=== PATIENT | male | born 1975 | race Caucasian/White ===

== ENCOUNTER 2017-03-29 07:02 | Inpatient (IN) | payer OTHER ==
[2017-03-17 09:50] LABS: BASOPHILS 0.8 %; BASOPHILS ABSOLUTE 0.05 10/3/uL (0.0-0.16); EOSINOPHILS 2.4 %; EOSINOPHILS ABSOLUTE 0.15 10/3/uL (0.0-0.53); HEMOGLOBIN 14.6 g/dL (13.6-17.8); LYMPHOCYTES 35.4 %; LYMPHOCYTES ABSOLUTE 2.21 10/3/uL (0.67-4.30); MANUAL DIFF NO %; MEAN CORPUS HGB CONC 34.8 g/dL (32.0-36.0); MEAN CORPUSCULAR HEMOGLOB 29.4 pg (26.0-34.0); MEAN CORPUSCULAR VOLUME 84.7 fL (80-100); MEAN PLATELET VOLUME 10.8 fL (9.2-13.0); MONOCYTES 8.3 %; MONOCYTES ABSOLUTE 0.52 10/3/uL (0.21-1.20); NEUTROPHILS 53.1 %; NEUTROPHILS ABSOLUTE 3.31 10/3/uL (2.02-8.40); PLATELET COUNT 208 10/3/uL (150-400); RED CELL COUNT 4.96 10/6/uL (4.7-6.1); WHITE BLOOD CELLS 6.2 10/3/uL (4.5-10.5)
[2017-03-17 09:55] LABS: INTERNATIONAL NORMAL RATI 1.1 UNITS (-); PROTIME (NOT ORD) 14.2 SEC (12.0-14.5)
[2017-03-17 10:14] LABS: % IRON SAT 33 % (20-50); A/G RATIO 1.2 (0.7-1.9); ALBUMIN 4.4 G/DL (3.5-5.0); BUN (BLOOD UREA NITROGEN) 15 MG/DL (6-23); CALCIUM, SERUM 9.4 MG/DL (8.5-10.4); CHLORIDE, SERUM 106 MMOL/L (96-112); CO2 (CARBON DIOXIDE) 28 MMOL/L (24-34); CREATININE 0.94 MG/DL (0.70-1.30); GFR AFRICAN AMERICAN 115 ML/MIN (>=60); GFR NON AFRICAN AMERICAN 100 ML/MIN (>=60); GLOBULIN 3.7 G/DL (2.5-4.1); GLUCOSE, SERUM 98 MG/DL (60-99); IRON BINDING CAPACITY 297 MCG/DL (250-450); IRON, SERUM 97 MCG/DL (35-150); POTASSIUM, SERUM 4.6 MMOL/L (3.5-5.3); SGOT(AST) 23 U/L (5-40); SGPT(ALT) 47 U/L (5-65); SODIUM, SERUM 140 MMOL/L (135-148); TOTAL PROTEIN 8.1 G/DL (6.0-8.5)
[2017-03-17 10:15] LABS: ALKALINE PHOSPHATASE 108 U/L (45-117); ASCORBIC ACID (UR NOT ORDER) NEG (NEG); BILIRUBIN, URINE NEGATIVE (NEG); KETONE, URINE NEGATIVE (NEG); LEUKOCYTE ESTERASE(NOT OR NEG (NEG); TOTAL BILIRUBIN 0.5 MG/DL (0-1.2); WBC (NOT ORDERED) (RFLEX) 1 (0-5)
--- NOTE | ~2017-03-29 | PUL ---
[address] [address] NAME: JAUN GIANG : 73 STATUS : ADM IN PAT#: [id number] AGE: 41 ADM/REG DATE : 03/29/17 MR#: [id number] REPORT SERV DATE: 04/03/17 DICTATED BY: SANG SHERMAN DATE: 04/02/17 REPORT STATUS : Draft TRANSCRIBED BY: MODL DATE: 04/02/17 PULMONARY FUNCTION TEST Overnight oximetry was performed on 2 L nasal cannula. Total valid sampling time was 7 hours 19 minutes and 18 seconds. Saturations were less than 88 for 28 seconds. INTERPRETATION: Normal oximetry report while on 2 L nasal cannula. FERNANDO/DEMETRIL Sang Sherman M.D. / [id number] CC: Mally Scott NP
--- NOTE | ~2017-03-29 | PUL ---
[address] [place]. [address] NAME: JAUN GIANG : 73 STATUS : ADM IN PAT#: [id number] AGE: 41 ADM/REG DATE : 03/29/17 MR#: [id number] REPORT SERV DATE: 04/03/17 DICTATED BY: SANG SHERMAN DATE: 04/02/17 REPORT STATUS : Draft TRANSCRIBED BY: MODL DATE: 04/02/17 PULMONARY FUNCTION TEST RESULTS: 1. FEV1 of 1.54 L or 33% predicted. 2. Forced vital capacity of 1.88 L or 32% predicted. 3. FEV1/FVC of 82%. INTERPRETATION: 1. Normal airflow. 2. Decreased forced vital capacity may indicate neuromuscular weakness, poor effort, or restriction. 3. 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 FERNANDO/LION Sang Sherman M.D. / [id number] CC: Mally Scott
--- NOTE | ~2017-03-29 | PUL ---
[address] [place]. [address] NAME: JAUN GIANG : 73 STATUS : DIS IN PAT#: [id number] AGE: 41 ADM/REG DATE : 03/29/17 MR#: [id number] REPORT SERV DATE: 04/10/17 DICTATED BY: KARL HOLCOMB DATE: 04/10/17 REPORT STATUS : Draft TRANSCRIBED BY: MODL DATE: 04/10/17 PULMONARY FUNCTION TEST PROCEDURE PERFORMED: Overnight oximetry. Study performed on room air with 6 hours of recorded time. The patient had 24 minutes of oxygen saturation less than 88% with an elevated saturation event index. IMPRESSION: Abnormal study with nocturnal hypoxemia. Consider formal sleep study if clinically indicated. MARTELL/LION Karl Holcomb M.D. / [id number] CC: Mlaly Scott
--- NOTE | ~2017-03-29 | DS ---
Discharge Summary [facility] [address] [place]. [address] NAME: JAUN GIANG : 73 STATUS : DIS IN PAT#: [id number] AGE: 41 ADM/REG DATE : 03/29/17 MR#: [id number] REPORT SERV DATE: 04/12/17 DICTATED BY: JEANNIE CRAIN DATE: 04/12/17 REPORT STATUS : Draft TRANSCRIBED BY: LION DATE: 04/12/17 Data Collection from hospitalization DISCHARGE DIAGNOSES: 1. Mitral regurgitation, status post mitral valve repair. 2. Hypertension. 3. Hypercholesterolemia. 4. Tobacco use. CONSULTATIONS: 1. Sang Sherman M.D. 2. Cameron Pearce M.D. PROCEDURES PERFORMED: 1. Minimally invasive mitral valve repair using triangular valvuloplasty, mitral valve annuloplasty using a 30 mm Physio II annuloplasty ring system, right femoral arteriotomy repair, right groin cutdown for cardiopulmonary bypass via right femoral vein and artery, transesophageal echocardiography on 03/29/2017. 2. CT scan of the chest without contrast on 04/01/2017. MEDICATIONS: Norvasc 10 mg every morning, vitamin C 1000 mg twice a day, aspirin 81 mg daily, Lipitor 40 mg at bedtime, Lasix 40 mg daily, hydrochlorothiazide 25 mg every morning, Cozaar 100 mg every morning, Glucophage 500 mg daily, Roxicodone 15 mg every four hours as needed, Klor-Con 20 mEq daily, Lyrica 50 mg three times a day, and Coumadin as instructed. CONDITION AT DISCHARGE: Stable. DISPOSITION: The patient was discharged home on a regular diet with activities as instructed. He would follow up with Shabbir Smith on 06/02/[address] Cameron Pearce on 05/19/2017. He would follow up with Dr. Da Ni two to six weeks following discharge. He would follow up with Dr. Tank Mcgee two to four weeks following discharge. He is to follow up at the [facility] on 04/05/2017 and a cardiac cath on 04/21/2017. HOSPITAL COURSE: This is a 41-year-old man who has diabetes and a history of right ACL repair with complication of MRSA infection. He also has a history of dilated aortic root. During one of his evaluations following the ACL repair infection, he was found to have a heart murmur. He underwent an echocardiogram, which demonstrated mitral valve insufficiency and subsequent transesophageal echocardiogram confirmed the presence of a significant mitral valve insufficiency along with a dilated ascending aorta and aortic root. His aortic valve had normal function and was a tricuspid valve. The mitral valve had a flail P1 or P2 cusp with severe mitral valve insufficiency and an eccentric jet. The patient had undergone a cardiac catheterization which did not demonstrate any significant coronary artery disease. He has a strongly left dominant system. Treatment options were discussed and it was elected to proceed with surgical intervention. He was admitted to the hospital at this time for further evaluation and treatment. Upon admission, he was taken to the operating room where he underwent the above-mentioned Discharge Summary [address] [address] NAME: JAUN GIANG : 73 STATUS : DIS IN PAT#: [id number] AGE: 41 ADM/REG DATE : 03/29/17 MR#: [id number] REPORT SERV DATE: 04/12/17 DICTATED BY: JEANNIE CRAIN DATE: 04/12/17 REPORT STATUS : Draft TRANSCRIBED BY: LION DATE: 04/12/17 procedure. He tolerated this well, and there were no complications. On postop day #1, he was awake and alert. He did complain of some pain with inspiratory effort in the right chest. Lung sounds were actually better than chest x-ray would suggest. Diuresis was going to began. White count was 12.1. SVC cannulation was requested. Resistance was encountered with attempted insertion of the cannula with absence of blood drainage. The procedure was aborted. The patient was seen by Dr. Cameron Pearce. The patient had been extubated. He still complained of some right-sided chest pain at the chest tube site. Toradol was given for musculoskeletal pain. Amiodarone and metoprolol would be given as schedule. He was transferred to the floor. On 03/31/2017, white count was 15.9. He still complained of some burning pain in the right side of his chest. Medications had been adjusted. Warfarin was started. Metoprolol was increased. INR level was 1.2. On 04/01/2017, he said he felt great. BiPAP had been used overnight. He had no chest pain or shortness of breath. He was in a normal sinus rhythm. He does have a moderate right- sided pleural effusion. Chest x-ray showed elevated right hemidiaphragm versus effusion or right lower lobe collapse. He was seen in consultation by Dr. Sang Sherman. White blood cell count was 15. Chest CT without contrast had revealed minimal pneumomediastinum. No pneumothorax was present. There was subcutaneous air present in the right chest wall. There was persistent elevation of the right diaphragm with minimal right pleural fluid. There was compressive atelectasis in the right middle lobe and right lower lobe. There was stable aneurysmal dilatation of the aortic root that measured 4.5 cm. He does have a history of chewing tobacco use. His postprocedure course had been complicated by shortness of breath, dyspnea, and mild orthopnea. He had undergone CPAP therapy overnight and demonstrated significant improvement. Subsequent chest x-ray demonstrated right basilar consolidation as well as elevated right hemidiaphragm, and CT scan had demonstrated clear evidence of elevated right hemidiaphragm and compressive atelectasis with no evidence of pneumonic infiltrate. At this point, he recommended bedside pulmonary function test to assess baseline lung function. The patient was to use incentive spirometry and flutter valve. Overnight oximetry study was going to be requested on 2 liters nasal cannula. ABG will be checked the following morning to assess whether he was a candidate for noninvasive positive pressure ventilation. In lieu of a sleep study, sniff test was requested. He felt the patient should see Dr. Mcgee as an outpatient for suspected obstructive sleep apnea, now with a possible restrictive component due to elevated right hemidiaphragm. The patient was aware that the right hemidiaphragm may recover in the intervening six months to a year. If it did not, he was a candidate for possible diaphragmatic plication. The following day, the patient complained that he had not slept at all. His incisions looked okay. He had a decreased heart rate overnight. The patient felt weak. Metoprolol and amiodarone were held. Telemetry revealed sinus rhythm with pauses noted. There was QRS morphology similar to sinus suggestive of junctional escape. I was felt AV block was likely related to medications. Norvasc was resumed. Cozaar was going to be resumed at a reduced dose. Discharge planning was performed. On 04/03/2017, INR level was 1.6. He was wanting to go home. He said he slept well. The patient said he was interested in BiPAP for obstructive sleep apnea and is willing to pay for it. We were hopeful to get this arranged as an outpatient. Discharge instructions were given. Due to his improved and stable condition, he was discharged home with the above-stated instructions. Information collected by: Rain Hodge Discharge Summary [address] [place]. [address] NAME: JAUN GIANG : 73 STATUS : DIS IN PAT#: [id number] AGE: 41 ADM/REG DATE : 03/29/17 MR#: [id number] REPORT SERV DATE: 04/12/17 DICTATED BY: JEANNIE CRAIN DATE: 04/12/17 REPORT STATUS : Draft TRANSCRIBED BY: LION DATE: 04/12/17 I submit the above information as my discharge summary. BRENT/LION Jeannie Crain M.D. / [id number] CC: Mally Scott LISA M William Warren, M.D.
--- NOTE | ~2017-03-29 | CN ---
Consultation Report [facility] [address] [place]. [address] NAME: JAUN MUNOZ : 73 STATUS : ADM IN PAT#: [id number] AGE: 41 ADM/REG DATE : 03/29/17 MR#: [id number] REPORT SERV DATE: 04/01/17 DICTATED BY: SANG ESCOBAR DATE: 04/01/17 REPORT STATUS : Draft TRANSCRIBED BY: MODBabar DATE: 04/01/17 CONSULTATION REPORT DATE OF CONSULTATION: Dear Dr. Crain and Shabbir Smith: Thank you for requesting my opinion regarding evaluation and management of Mr. Jaun Munoz's shortness of breath, elevated right hemidiaphragm, and possible obstructive sleep apnea. Mr. Munoz is an extremely pleasant 41-year-old gentleman with a significant past medical history of hypertension, aneurysm of the aortic root, and mitral valvular regurgitation who presented for an outpatient elective minimally invasive MVR. The patient underwent a right ACL repair in October of 2016 and developed a torn quadriceps muscle which became infected. He had been on antibiotics and then presented to Dr. Pulliam for further evaluation. Dr. Pulliam detected a new heart murmur that was not present on previous examinations. The patient then underwent an echocardiogram that demonstrated mitral valve insufficiency and subsequently underwent MARGO that confirmed a dilated aortic root up to 4.5 cm. He had a tricuspid normal-shaped aortic valve with normal function and mitral valve had a flailed P1 or P2 segment with significant and severe mitral valve insufficiency, which was eccentric. There was minimal flow reversal in one of the pulmonary veins and his ventricular dimensions were normal and ventricular function was normal. He was referred to Dr. Crain on 02/24/2017 who recommended a right thoracoscopic approach with minimally invasive MVR placement. The patient's postoperative course has been complicated by worsening shortness of breath, dyspnea on exertion, and right-sided expected postoperative discomfort. The patient states that his shortness of breath is moderate in nature, well localized to the chest, worse when lying flat. Subsequent chest x-ray on 04/01/2017 demonstrated a persistent right basilar consolidation with elevation of the right hemidiaphragm. A CT scan of the chest performed on 04/01/2017 confirmed the mitral valve replacement, minimal pneumomediastinum, no pneumothorax and subcutaneous air present throughout the right chest wall, persistent elevation of the right hemidiaphragm with minimal right-sided pleural effusion and compressive atelectasis of the right middle lobe and right lower lobe. Stable aneurysm and dilation of the aortic root that measures 4.5 cm. The patient was placed on CPAP last night by the respiratory therapist, and the patient reported dramatic improvement in his shortness of breath and immediately requested a similar machine for his home. He stated that it was the best sleep he has ever had. He reveals that he has had a long history of poor non-restorative sleep, excessive daytime fatigue, and witnessed apneic episodes. REVIEW OF SYSTEMS: A detailed 14-point review of systems was completed. Pertinent positives and negatives are listed above. PAST MEDICAL HISTORY: 1. Dilated aortic root. Consultation Report [id number] [facility] [place]. [address] NAME: JAUN MUNOZ : 73 STATUS : ADM IN PAT#: [id number] AGE: 41 ADM/REG DATE : 03/29/17 MR#: [id number] REPORT SERV DATE: 04/01/17 DICTATED BY: SANG ESCOBAR DATE: 04/01/17 REPORT STATUS : Draft TRANSCRIBED BY: LION DATE: 04/01/17 2. Right ACL repair complicated by Propionibacterium acnes septic arthritis. 3. Hypertension. PAST SURGICAL HISTORY: 1. Cardiac catheterization that demonstrated an EF of 60%, left dominant, no CAD, no gradient between the left ventricle and aorta on 04/17/2012. Repeat cath on 02/16/2017 demonstrated EF of 65%, left dominant severe MR, and a dilated left atrium, normal coronary arteries, large D1 that parallels to LAD and supplies more of the LAD territories in the remaining LAD. PA pressures of 44/18 with a mean pulmonary capillary wedge pressure of 21 and LVEDP of 20. 2. Minimally invasive mitral valve repair on 03/29/2017. SOCIAL HISTORY: The patient chews tobacco, but he is not a smoker. He has a limited alcohol use, typically beer or liquor, three glasses consumed weekly. No history of illicit drug abuse. FAMILY HISTORY: Paternal grandfather with aneurysm. Father - hypertension. ALLERGIES: NO KNOWN DRUG ALLERGIES. HOME MEDICATIONS: Reviewed and located in the paper chart. PHYSICAL EXAMINATION: VITAL SIGNS: Afebrile, T current of 99.2; pulse of 67; respiratory rate of 16; room air 94%; and blood pressure 142/77. GENERAL: In no acute distress, able to communicate in full paragraphs at a time. HEENT: Normocephalic and atraumatic. Pupils are equal, round, and reactive to light and accommodation. Posterior oropharynx is clear, but crowded. NECK: Thick neck. No JVD. CARDIOVASCULAR: Regular rate and rhythm. S1 and S2 present. LUNGS: Coarse bilateral breath sounds bilaterally, worse on the right with slight crepitus from subcutaneous emphysema. Diminished breath sounds at the right base. ABDOMEN: Nontender, nondistended, and soft. Positive bowel sounds. EXTREMITIES: No clubbing, cyanosis, or edema. SKIN: No new rashes, lesions, or ulcers. PSYCHIATRIC: Alert and oriented x3. Appropriate mood and affect. Appropriate insight and judgment. NEUROLOGIC: 5/5 strength in upper and lower extremities. Cranial nerves II through XII are intact. Gait not tested. DTRs not performed. LABORATORY DATA: White count of 15, hemoglobin of 11, and platelet count of 113. INR of 1.3. Chemistries demonstrate a creatinine of 0.73. Last ABG performed on 03/29/2017 demonstrates a pH of 7.39, PaCO2 of 37, PaO2 of 83 on SIMV with tidal volumes of 850, a rate of 10, and a PEEP of 5. Consultation Report [address] [place]. [address] NAME: JAUN MUNOZ : 73 STATUS : ADM IN [facility]#: [id number] AGE: 41 ADM/REG DATE : 03/29/17 MR#: [id number] REPORT SERV DATE: 04/01/17 DICTATED BY: SANG ESCOBAR DATE: 04/01/17 REPORT STATUS : Draft TRANSCRIBED BY: LION DATE: 04/01/[address] without contrast performed on 04/01/2017 was personally reviewed by me and I agree with the above interpretation. The patient is status post mitral valve replacement. 2. Minimal pneumomediastinum. No pneumothorax present. Subcutaneous air is present in the right chest wall, persistent elevation of the right hemidiaphragm with minimal right pleural fluid. There is compressive atelectasis in the right middle lobe and right lower lobe. 3. Stable aneurysmal dilation of the aortic root that measures 4.5 cm. ASSESSMENT AND PLAN: Mr. Jaun Munoz is an extremely pleasant 41-year-old gentleman with a significant past medical history of chewing tobacco, abuse, hypertension, right anterior cruciate ligament repair complicated by right knee septic arthritis, and mitral valve replacement who presented to [facility] for an elective minimally invasive mitral valve repair. His postprocedural course has been complicated by shortness of breath, dyspnea, and mild orthopnea. He underwent CPAP therapy overnight and it demonstrated significant improvement. Subsequent chest x-ray demonstrated right basilar consolidation as well as elevated right hemidiaphragm and CT scan demonstrated clear evidence of elevated right hemidiaphragm and compressive atelectasis with no evidence of a pneumonic infiltrate. At this point, Mr. Jaun Munoz's shortness of breath is likely multifactorial including the followin. Preexisting history of nonrestorative sleep, daytime fatigue, and witnessed apneic episodes consistent with likely obstructive sleep apnea. 2. Elevated right hemidiaphragm, suspicious for either paralysis or plegia. 3. Postoperative atelectasis in addition to compressive atelectasis secondary to the elevated right hemidiaphragm. At this point, I recommend the following to optimize his pulmonary status and better elucidate the underlying causes of his shortness of breath including the followin. Bedside pulmonary function tests to assess baseline lung function. 2. ICS QVAR. 3. Flutter valve t.i.d. 4. Overnight oximetry on 2 liters nasal cannula. Check ABG in the a.m. to assess whether he is a candidate for noninvasive positive pressure ventilation in lieu of a sleep study. 5. Sniff test. 6. Outpatient consultation with Dr. Mcgee for suspected obstructive sleep apnea with now a possible restrictive component due to elevated right hemidiaphragm. 7. The patient is aware that the right hemidiaphragm may recover in the intervening six months to year. If it does not, he is a candidate for possible diaphragmatic plication, pending Dr. Crain's evaluation. 8. Follow up in our Pulmonary Clinic with Dr. Da Ni. He has been apprised of the current hospital course. Consultation Report [address] [place] [address] NAME: JAUN MUNOZ : 73 STATUS : ADM IN PAT#: [id number] AGE: 41 ADM/REG DATE : 03/29/17 MR#: [id number] REPORT SERV DATE: 04/01/17 DICTATED BY: SANG ESCOBAR DATE: 04/01/17 REPORT STATUS : Draft TRANSCRIBED BY: LION DATE: 04/01/17 Thank you for allowing me to participate in Mr. Munoz's care. FERNANDO/LION Sang Escobar M.D. / [id number] CC: Mally Scott LISA M
--- NOTE | ~2017-03-29 | OP ---
Record Of Operation [facility] [address] [place]. [address] NAME: JAUN GIANG : 73 STATUS : ADM IN PAT#: [id number] AGE: 41 ADM/REG DATE : 03/29/17 MR#: [id number] REPORT SERV DATE: 04/02/17 DICTATED BY: JEANNIE CRAIN DATE: 04/02/17 REPORT STATUS : Draft TRANSCRIBED BY: MODL DATE: 04/02/17 DATE OF PROCEDURE: 03/29/2017 PREOPERATIVE DIAGNOSES: 1. Mitral valve insufficiency. 2. Type 2 dqt-nsrjbej-houijpukt diabetes mellitus. 3. Hypertension. 4. Enlargement of aortic root. 5. Obesity. POSTOPERATIVE DIAGNOSES: 1. Mitral valve insufficiency. 2. Type 2 enq-uhkmynr-zveojcqkh diabetes mellitus. 3. Hypertension. 4. Enlargement of aortic root. 5. Obesity. PROCEDURE PERFORMED: 1. Minimally invasive mitral valve repair using triangular valvuloplasty. 2. Mitral valve annuloplasty using a 30 mm Physio II annuloplasty ring system. 3. Right femoral arteriotomy repair. 4. Right groin cutdown for cardiopulmonary bypass via right femoral vein and artery. 5. Transesophageal echocardiography. SURGEONS: Jeannie Crain M.D. ASSISTANTS: Roman Mendiola and Hubert Calvo. ANESTHESIA: General with Dr. Sandoval and Dr. Oviedo. PROP CUTTER: Cameron Pearce M.D. INDICATIONS: This is a 41-year-old gentleman, with diabetes, who has a history of right ACL repair, with complication of MRSA infection. He also has a history of dilated aortic root. During one of his evaluations following his ACL repair infection, he was found to have a heart murmur. He underwent an echocardiogram that demonstrated mitral valve insufficiency and subsequent MARGO confirmed the presence of a significant mitral valve insufficiency along with a dilated ascending aorta and aortic root. His aortic valve had normal function and was a tricuspid valve. The mitral valve had a flail P1 or P2 cusp with severe mitral valve insufficiency in an eccentric jet. The patient underwent a cardiac catheterization, it did not demonstrate any significant coronary artery disease. A strongly left dominant system. We were asked to see the patient for possible mitral valve repair or replacement. We discussed this operation with the patient and his significant other, and after lengthy discussion of the operation, its indications, risks, they wished to proceed. Right thoracotomy minimally invasive approach was discussed with the family and they also preferred this. As far as his dilated ascending aorta and aortic root, it was felt that one Record Of Operation [facility] [address] [place]. [address] NAME: JAUN GIANG : 73 STATUS : ADM IN PAT#: [id number] AGE: 41 ADM/REG DATE : 03/29/17 MR#: [id number] REPORT SERV DATE: 04/02/17 DICTATED BY: JEANNIE CRAIN DATE: 04/02/17 REPORT STATUS : Draft TRANSCRIBED BY: LION DATE: 04/02/[address] scan would be indicated. FINDINGS AT OPERATION: 1. Cross-clamp 119 minutes. Total pump time 177 minutes. Custodiol was used as a cardioplegic solution. 2. The P2 cusp of the posterior leaflet was flail with ruptured chords. There were only two or three ruptured cords at the tip of one of the cusp of the leaflet. As it was somewhat redundant tissue at this time, we were able to do a triangular resection and primarily repaired this as a valvuloplasty. 3. A 30 mm annuloplasty ring system was implanted (Physio II) with good results. 4. MARGO demonstrated good ventricular function with trace mitral valve insufficiency at the end of the procedure. 5. The left atrial appendage opening could not be visualized through the atriotomy that was made. Because of the patient's size, exposure was challenging, and I did not feel comfortable trying to close the left atrial appendage. In addition, the patient had extremely large circumflex system and we were concerned about injuring this artery. 6. During the placement of the lines by Anesthesia and a right IJ perforation was made with a 19-Uzbek cannula. The cannula was withdrawn and pressure held over the neck for several minutes. We delayed, started the operation after about 45 minutes waiting for good hemostasis. While doing the procedure and through the right thoracotomy there was about 100 mL of blood clot and blood in the right chest. The perforation site into the pleural cavity was visualized and was not actively bleeding even at the beginning of the procedure or following bypass at the end. PATHOLOGIC SPECIMENS: None. DESCRIPTION OF PROCEDURE: The patient was brought to the operating suite, general anesthesia was induced, and airway was secured with a dual lumen endotracheal tube. Lines were secured by Anesthesia. In addition, a right IJ stick was performed after confirmation with ultrasound and a guidewire was placed in the SVC. Then, using a modified Seldinger technique this tract was dilated and eventually a 19-Uzbek arterial cannula was placed for SVC drainage. When the introducer stylet was removed and the guidewire was removed, there was no back return through the cannula. I felt that this most likely represented a perforation of the vessel. The catheter was withdrawn and pressure held over the wound and we waited a period of time before proceeding with operation. MARGO placed did not demonstrate any pericardial effusion and no significant pleural effusion was noted. After waiting a period of time, it was decided to proceed with operation through a thoracotomy approach. Cut down on the right femoral artery and vein were made through 3 to 4 cm incision over the femoral crease on the right side. The vessels were dissected out and then pursestring sutures wee placed in both structures. During this time, a right anterolateral thoracotomy incision was made measuring approximately 8 cm and carried through the subcutaneous tissue. The chest wall and musculature were split and we entered the chest through the fourth intercostal space. Probably secondary to the patient's size, the diaphragm was up obscuring the view into the right chest and the lung was visualized. We then placed tacking sutures on the diaphragm Record Of Operation [address] [place]. [address] NAME: JAUN GIANG : 73 STATUS : ADM IN [facility]#: [id number] AGE: 41 ADM/REG DATE : 03/29/17 MR#: [id number] REPORT SERV DATE: 04/02/17 DICTATED BY: JEANNIE CRAIN DATE: 04/02/17 REPORT STATUS : Draft TRANSCRIBED BY: MODL DATE: 04/02/17 and these were pulled out through a separate stab incision and secured to the drape. This allowed us good visualization of the lung, the hilum, and the right pericardium. Then additional port sites stab incisions were made measuring approximately 1 cm and through these sites in the anterior axillary line, the aortic cross-clamp was placed into the chest and a trocar was placed, and a 5 mm scope for the procedure, and finally a suction catheter was placed along the anterior axillary line stab wound and inferior to the largest VATS incision. It should be noted that a soft tissue retractor was placed through the largest of the VATS incision for exposure. Then using modified Seldinger technique, and over guidewires femoral artery and vein were cannulated. I believe a 21-Uzbek cannula was placed in the right femoral artery and secured and in the right femoral vein, a 29 mm venous cannula was placed and secured. Heparin was administered by Anesthesia and after adequate time and when all was in readiness, the patient was placed on cardiopulmonary bypass. Examination of the chest with thoracoscope did demonstrate some hematoma in the posterior upper mediastinal space. No active bleeding was seen, a puncture site in the pleura was then visualized, and there was some small amount of clot in the right chest, it was removed. Again, no active bleeding was noted and it was decided to proceed with the operation. The pericardium was opened 2 cm anterior to the phrenic nerve, intact out of the way. Then, the interatrial groove of [place] was dissected. A 4-0 Prolene pledgeted suture was placed in the ascending aorta for antegrade cardioplegia cannulation placement. This was then performed and the cannula was secured with a rundown. The aorta was then cross clamped using the large Yanna clamp. Initially an only dose of cold blood Custodiol solution was administered in antegrade fashion. Once this was completed, the left atrium was opened, and a retractor was placed, and the anterior wall brought more anteriorly to allow good visualization of the mitral valve. The mitral valve was examined and annuloplasty sutures were placed circumferentially about the mitral valve annulus and suspended. With the suspension, we were able to see clearly the flail leaflet in the P2 cusp of the posterior leaflet. I felt the triangular resection could achieve resolution of this flail segment. Triangular resection was then carried out and this gap was closed with interrupted horizontal mattress sutures of 5-0 Prolene. Following completion of the repair, ice saline injection into the orifice of the mitral valve distended the ventricle without significant leak. The valve was then sized and a 30 mm Physio II annuloplasty ring system was selected. The sutures were then passed through the sewing cuff of the annuloplasty ring. This was lowered into position. Each of the sutures individually secured and divided using a Cor-Knot device. A total of 17 Cor-Knots were utilized. Next, ice saline was again used to test the valve, and it was competent, and without any significant leak. Photographs both before and after repair were obtained and these are on the record. We tried to visualize the opening to the left atrial appendage from within the left atrium, and because of the patient's size, and being unable to visualize the opening of the left Record Of Operation [facility] [address] [place]. [address] NAME: JAUN GIANG : 73 STATUS : ADM IN PAT#: [id number] AGE: 41 ADM/REG DATE : 03/29/17 MR#: [id number] REPORT SERV DATE: 04/02/17 DICTATED BY: JEANNIE CRAIN DATE: 04/02/17 REPORT STATUS : Draft TRANSCRIBED BY: MODBabar DATE: 04/02/17 atrial appendage, the left atrial appendage was not closed. The left atriotomy was then closed in a two-layer fashion with running pledgeted suture of 4-0 Prolene. A vent was left through the suture line in the ventricle temporarily. Then flows on the bypass pump were reduced and aortic cross-clamp was removed. The heart was cardioverted using 300 joules of energy in the external pads. Then pacing wires were placed in the ventricle and atrium, and pacing was started in atrially paced at a rate of 80. Ventilations were begun, and when the heart demonstrated good contractility, it was allowed to fill and eject. De-airing was monitored with MARGO. When deairing was completed, the LV vent was removed, and the left atrial sutures were tied. The patient was weaned from cardiopulmonary bypass with minimal inotropic support. The venous cannula was removed from the right femoral vein and this pursestring suture secured and tied. MARGO examination demonstrated good ventricular function. There was a very minimal trace leak of the mitral in the valve. The aortic and tricuspid valves also were competent. Protamine was administered by Anesthesia, and following a period of hemodynamic stability, the arterial cannula was removed from the right femoral artery. Vascular clamps were placed on the proximal and distal femoral artery. The arteriotomy site was freshened to remove any flap. The arteriotomy site was then closed with interrupted sutures of 6-0 Prolene. Following completion of this suture line, the distal clamp was removed, and vessel was de-aired and the proximal clamp was removed. There was good response of the O2 saturation monitors on the lower extremities with repair of the femoral artery The patient continued to do well and chest was irrigated copiously with saline along with the right groin. Hemostasis was obtained. Intercostal blocks were performed with the TAP solution. Once hemostasis was assured, a 32-Uzbek chest tube was placed through one of the trocar sites and secured to the skin. The pericardium was closed over the heart in two place with tacking sutures of 4-0 Prolene. The intercostal space was reapproximated with #2 Vicryl. The muscular layer was closed with #1 Stratafix and the subcutaneous tissue was closed with 2-0 Stratafix. The skin was closed in subcuticular fashion. The right groin incision was closed in layers with absorbable suture and the skin was closed in a subcuticular fashion. The other stab wounds were closed likewise. The patient tolerated the procedure well. There were no complications. Sponge and needle counts were correct. DISPOSITION: The patient was left intubated, sedated, and transported to the Intensive Care in stable condition. PAWAN/LION Jeannie Record Of Operation [address] [address] NAME: JAUN GIANG : 73 STATUS : ADM IN [facility]#: [id number] AGE: 41 ADM/REG DATE : 03/29/17 MR#: [id number] REPORT SERV DATE: 04/02/17 DICTATED BY: JEANNIE CRAIN DATE: 04/02/17 REPORT STATUS : Draft TRANSCRIBED BY: LION DATE: 04/02/17 Mally Crain / [id number] CC: Mally Scott LISA M * William Warren, M.D.
[~2017-03-29 07:02] MED LIST: ARIMIDEX1 PO; ASAB PO; ATEN50 PO; CEFAZ1 IV; COZAAR100 MG PO; GLUCPH PO; HYDROCHLOROT25 MG PO; LOTREL1 CAP PO; NORV10 PO; PERCOCET 10/3251 TAB PO; TESTOSTERONE IM; TESTOSTERONE PELLET
[2017-03-29 16:31] LABS: BE (BASE EXCESS) -1.4 MEQ/L (0 +/- 2.5); CARBOXYHEMOGLOBIN 0.3 % (0-3); HCO3 (ACTUAL BICARBONATE) 24.9 MEQ/L (23-27); HEMOBLOGIN CONTENT 12.9 G/DL (14-18); INSTRUMENT SERIAL # 11843; METHEMOGLOBIN 0.7 % (0-3); MODE SIMV; O2 CONTENT 17.8 VOL% (18-24); OPERATOR ID 18642; PCO2 (CO2 TENSION) 49 MMHG (35-45); PO2 (O2 TENSION) 137 MMHG (79-93); PRESSURE SUPPORT 0 cm.H2O; SAMPLE Arterial; TIDAL VOLUME 850 ML; pH 7.33 (7.37-7.43)
[2017-03-29 17:01] LABS: HEMATOCRIT 34.5 % (40.0-51.0); PLATELET COUNT 121 10/3/uL (150-400)
[2017-03-29 17:07] LABS: INTERNATIONAL NORMAL RATI 1.4 UNITS (-); PARTIAL THROMBO TIME 30.7 SEC (22.5-37.2); PROTIME (NOT ORD) 17.2 SEC (12.0-14.5)
[2017-03-29 17:12] LABS: BUN (BLOOD UREA NITROGEN) 18 MG/DL (6-23); CHLORIDE, SERUM 104 MMOL/L (96-112); CO2 (CARBON DIOXIDE) 30 MMOL/L (24-34); CREATININE 1.13 MG/DL (0.70-1.30); GFR AFRICAN AMERICAN 92 ML/MIN (>=60); GFR NON AFRICAN AMERICAN 80 ML/MIN (>=60); POTASSIUM, SERUM 3.7 MMOL/L (3.5-5.3); SODIUM, SERUM 138 MMOL/L (135-148)
[2017-03-29 17:14] LABS: CALCIUM, SERUM 8.1 MG/DL (8.5-10.4); GLUCOSE, SERUM 141 MG/DL (60-99)
[2017-03-29 19:53] LABS: BE (BASE EXCESS) -2.3 MEQ/L (0 +/- 2.5); CARBOXYHEMOGLOBIN 0.3 % (0-3); DEVICE NC; HCO3 (ACTUAL BICARBONATE) 22.2 MEQ/L (23-27); INSTRUMENT SERIAL # 11843; METHEMOGLOBIN 0.4 % (0-3); O2 CONTENT 18.7 VOL% (18-24); OPERATOR ID 17370; PCO2 (CO2 TENSION) 37 MMHG (35-45); PO2 (O2 TENSION) 83 MMHG (79-93); SAMPLE Arterial; pH 7.39 (7.37-7.43)
[2017-03-29 22:58] LABS: HEMATOCRIT 35.3 % (40.0-51.0); HEMOGLOBIN 12.3 g/dL (13.6-17.8)
[2017-03-29 23:10] LABS: BUN (BLOOD UREA NITROGEN) 21 MG/DL (6-23); CALCIUM, SERUM 8.5 MG/DL (8.5-10.4); CHLORIDE, SERUM 109 MMOL/L (96-112); CO2 (CARBON DIOXIDE) 25 MMOL/L (24-34); GFR AFRICAN AMERICAN 95 ML/MIN (>=60); GFR NON AFRICAN AMERICAN 82 ML/MIN (>=60); GLUCOSE, SERUM 118 MG/DL (60-99); POTASSIUM, SERUM 4.1 MMOL/L (3.5-5.3); SODIUM, SERUM 141 MMOL/L (135-148)
[2017-03-30 03:34] LABS: BASOPHILS 0 %; EOSINOPHILS 0 %; HEMATOCRIT 34.1 % (40.0-51.0); HEMOGLOBIN 11.9 g/dL (13.6-17.8); IMMATURE GRANULOCYTES 0.2 %; IMMATURE GRANULOCYTES ABSOLUTE 0.03 10/3/uL (0.0-0.11); LYMPHOCYTES 5.5 %; LYMPHOCYTES ABSOLUTE 0.67 10/3/uL (0.67-4.30); MANUAL DIFF NO %; MEAN CORPUS HGB CONC 34.9 g/dL (32.0-36.0); MEAN CORPUSCULAR HEMOGLOB 30.1 pg (26.0-34.0); MEAN CORPUSCULAR VOLUME 86.1 fL (80-100); MEAN PLATELET VOLUME 9.9 fL (9.2-13.0); MONOCYTES 4.5 %; MONOCYTES ABSOLUTE 0.55 10/3/uL (0.21-1.20); NEUTROPHILS 89.8 %; NEUTROPHILS ABSOLUTE 10.84 10/3/uL (2.02-8.40); PLATELET COUNT 114 10/3/uL (150-400); RBC DISTRIBUTION WIDTH 13.8 % (12.0-16.0); RED CELL COUNT 3.96 10/6/uL (4.7-6.1); WHITE BLOOD CELLS 12.1 10/3/uL (4.5-10.5)
[2017-03-30 03:47] LABS: BUN (BLOOD UREA NITROGEN) 22 MG/DL (6-23); CALCIUM, SERUM 8.5 MG/DL (8.5-10.4); CHLORIDE, SERUM 108 MMOL/L (96-112); CO2 (CARBON DIOXIDE) 26 MMOL/L (24-34); CREATININE 0.92 MG/DL (0.70-1.30); GFR AFRICAN AMERICAN 118 ML/MIN (>=60); GFR NON AFRICAN AMERICAN 102 ML/MIN (>=60); GLUCOSE, SERUM 105 MG/DL (60-99); POTASSIUM, SERUM 3.9 MMOL/L (3.5-5.3); SODIUM, SERUM 141 MMOL/L (135-148)
[2017-03-30 06:34] LABS: INTERNATIONAL NORMAL RATI 1.2 UNITS (-); PROTIME (NOT ORD) 15.5 SEC (12.0-14.5)
[2017-03-30 10:04] LABS: POTASSIUM, SERUM 3.6 MMOL/L (3.5-5.3)
[2017-03-31 04:30] LABS: BASOPHILS 0.1 %; BASOPHILS ABSOLUTE 0.01 10/3/uL (0.0-0.16); EOSINOPHILS 0.1 %; EOSINOPHILS ABSOLUTE 0.01 10/3/uL (0.0-0.53); HEMATOCRIT 33.9 % (40.0-51.0); HEMOGLOBIN 11.6 g/dL (13.6-17.8); IMMATURE GRANULOCYTES 0.4 %; IMMATURE GRANULOCYTES ABSOLUTE 0.06 10/3/uL (0.0-0.11); LYMPHOCYTES 12.1 %; LYMPHOCYTES ABSOLUTE 1.91 10/3/uL (0.67-4.30); MEAN CORPUS HGB CONC 34.2 g/dL (32.0-36.0); MEAN CORPUSCULAR HEMOGLOB 30.1 pg (26.0-34.0); MEAN CORPUSCULAR VOLUME 88.1 fL (80-100); MEAN PLATELET VOLUME 10.4 fL (9.2-13.0); MONOCYTES ABSOLUTE 1.75 10/3/uL (0.21-1.20); NEUTROPHILS 76.3 %; NEUTROPHILS ABSOLUTE 12.11 10/3/uL (2.02-8.40); PLATELET COUNT 116 10/3/uL (150-400); RBC DISTRIBUTION WIDTH 14.8 % (12.0-16.0); RED CELL COUNT 3.85 10/6/uL (4.7-6.1); WHITE BLOOD CELLS 15.9 10/3/uL (4.5-10.5)
[2017-03-31 04:32] LABS: BUN (BLOOD UREA NITROGEN) 24 MG/DL (6-23); CALCIUM, SERUM 8.8 MG/DL (8.5-10.4); CHLORIDE, SERUM 107 MMOL/L (96-112); CO2 (CARBON DIOXIDE) 25 MMOL/L (24-34); CREATININE 0.96 MG/DL (0.70-1.30); GFR AFRICAN AMERICAN 113 ML/MIN (>=60); GFR NON AFRICAN AMERICAN 97 ML/MIN (>=60); MANUAL DIFF NO %; SODIUM, SERUM 141 MMOL/L (135-148)
[2017-03-31 04:38] LABS: GLUCOSE, SERUM 134 MG/DL (60-99); POTASSIUM, SERUM 4.5 MMOL/L (3.5-5.3)
[2017-03-31 10:46] LABS: INTERNATIONAL NORMAL RATI 1.2 UNITS (-)
[2017-04-01 05:31] LABS: BASOPHILS 0.1 %; BASOPHILS ABSOLUTE 0.01 10/3/uL (0.0-0.16); EOSINOPHILS 0.1 %; EOSINOPHILS ABSOLUTE 0.01 10/3/uL (0.0-0.53); HEMATOCRIT 32.2 % (40.0-51.0); HEMOGLOBIN 11.1 g/dL (13.6-17.8); IMMATURE GRANULOCYTES 0.3 %; IMMATURE GRANULOCYTES ABSOLUTE 0.04 10/3/uL (0.0-0.11); LYMPHOCYTES 12.8 %; LYMPHOCYTES ABSOLUTE 1.97 10/3/uL (0.67-4.30); MEAN CORPUS HGB CONC 34.5 g/dL (32.0-36.0); MEAN CORPUSCULAR HEMOGLOB 30.2 pg (26.0-34.0); MEAN CORPUSCULAR VOLUME 87.7 fL (80-100); MEAN PLATELET VOLUME 10.6 fL (9.2-13.0); MONOCYTES 11.3 %; MONOCYTES ABSOLUTE 1.74 10/3/uL (0.21-1.20); NEUTROPHILS 75.4 %; NEUTROPHILS ABSOLUTE 11.58 10/3/uL (2.02-8.40); PLATELET COUNT 113 10/3/uL (150-400); RBC DISTRIBUTION WIDTH 14.7 % (12.0-16.0); RED CELL COUNT 3.67 10/6/uL (4.7-6.1); WHITE BLOOD CELLS 15.4 10/3/uL (4.5-10.5)
[2017-04-01 05:32] LABS: MANUAL DIFF NO %
[2017-04-01 05:34] LABS: INTERNATIONAL NORMAL RATI 1.3 UNITS (-); PROTIME (NOT ORD) 16.4 SEC (12.0-14.5)
[2017-04-01 05:38] LABS: CALCIUM, SERUM 8.7 MG/DL (8.5-10.4); CHLORIDE, SERUM 103 MMOL/L (96-112); CO2 (CARBON DIOXIDE) 27 MMOL/L (24-34); CREATININE 0.73 MG/DL (0.70-1.30); GFR AFRICAN AMERICAN 133 ML/MIN (>=60); GFR NON AFRICAN AMERICAN 114 ML/MIN (>=60); GLUCOSE, SERUM 118 MG/DL (60-99); POTASSIUM, SERUM 4.2 MMOL/L (3.5-5.3); SODIUM, SERUM 138 MMOL/L (135-148)
[2017-04-01 05:39] LABS: BUN (BLOOD UREA NITROGEN) 13 MG/DL (6-23)
[2017-04-01 09:34] LABS: INTERNATIONAL NORMAL RATI 1.3 UNITS (-); PROTIME (NOT ORD) 16.5 SEC (12.0-14.5)
[2017-04-02 05:46] LABS: ALLENS TEST Pos; BE (BASE EXCESS) 2.9 MEQ/L (0 +/- 2.5); CARBOXYHEMOGLOBIN 1.6 % (0-3); DEVICE NC; HCO3 (ACTUAL BICARBONATE) 27.6 MEQ/L (23-27); HEMOBLOGIN CONTENT 13.6 G/DL (14-18); INSTRUMENT SERIAL # 8087; METHEMOGLOBIN 0.1 % (0-3); O2 CONTENT 18.1 VOL% (18-24); OPERATOR ID 17537; PCO2 (CO2 TENSION) 43 MMHG (35-45); PO2 (O2 TENSION) 84 MMHG (79-93); SAMPLE Arterial; pH 7.43 (7.37-7.43)
[2017-04-02 06:47] LABS: BASOPHILS 0.1 %; BASOPHILS ABSOLUTE 0.01 10/3/uL (0.0-0.16); EOSINOPHILS 0.5 %; EOSINOPHILS ABSOLUTE 0.07 10/3/uL (0.0-0.53); HEMATOCRIT 33.8 % (40.0-51.0); HEMOGLOBIN 11.6 g/dL (13.6-17.8); IMMATURE GRANULOCYTES 0.2 %; IMMATURE GRANULOCYTES ABSOLUTE 0.03 10/3/uL (0.0-0.11); LYMPHOCYTES 18.7 %; LYMPHOCYTES ABSOLUTE 2.51 10/3/uL (0.67-4.30); MEAN CORPUS HGB CONC 34.3 g/dL (32.0-36.0); MEAN CORPUSCULAR HEMOGLOB 30.2 pg (26.0-34.0); MEAN PLATELET VOLUME 10.8 fL (9.2-13.0); MONOCYTES 10.5 %; MONOCYTES ABSOLUTE 1.41 10/3/uL (0.21-1.20); NEUTROPHILS ABSOLUTE 9.42 10/3/uL (2.02-8.40); RBC DISTRIBUTION WIDTH 14.4 % (12.0-16.0); RED CELL COUNT 3.84 10/6/uL (4.7-6.1); WHITE BLOOD CELLS 13.5 10/3/uL (4.5-10.5)
[2017-04-02 06:51] LABS: MANUAL DIFF NO %; PLATELET COUNT 161 10/3/uL (150-400)
[2017-04-02 07:03] LABS: BUN (BLOOD UREA NITROGEN) 13 MG/DL (6-23); CHLORIDE, SERUM 101 MMOL/L (96-112); GFR AFRICAN AMERICAN 128 ML/MIN (>=60); GFR NON AFRICAN AMERICAN 110 ML/MIN (>=60); GLUCOSE, SERUM 126 MG/DL (60-99); SODIUM, SERUM 138 MMOL/L (135-148)
[2017-04-02 07:05] LABS: CO2 (CARBON DIOXIDE) 32 MMOL/L (24-34); POTASSIUM, SERUM 4.8 MMOL/L (3.5-5.3)
[2017-04-02 07:09] LABS: INTERNATIONAL NORMAL RATI 1.5 UNITS (-); PROTIME (NOT ORD) 17.8 SEC (12.0-14.5)
[2017-04-02 10:26] LABS: INTERNATIONAL NORMAL RATI 1.5 UNITS (-); PROTIME (NOT ORD) 18.3 SEC (12.0-14.5)
[2017-04-03 06:14] LABS: INTERNATIONAL NORMAL RATI 1.6 UNITS (-); PROTIME (NOT ORD) 19.1 SEC (12.0-14.5)
[2017-04-03] MEDS ORDERED: VITC500 PO (13:09)
[2017-04-03] MEDS ORDERED: LYRICA50 PO (13:12)
[2017-04-03] MEDS ORDERED: LIPITOR40 PO (13:14)
[2017-04-03] MEDS ORDERED: COUMADIN3 MG (13:14)
[2017-04-03] MEDS ORDERED: LIPITOR40 (13:14)
[2017-04-03] MEDS ORDERED: L40 PO (13:15)
[2017-04-03] MEDS ORDERED: KLOR-CON M2020 MEQ PO (13:16)
[2017-04-03] MEDS ORDERED: ROXICODONE15 MG PO (13:17)
== END 2017-04-03 15:42 | disposition home or self-care (01) | DRG 220 ==
LOC: SDC/OF 07:02 → CVICU 11:29 → 5NO 03-30 13:56
PROVIDERS: Nurse Practitioner Family; Thoracic Surgery (Cardiothoracic Vascular Surgery)
PROC: B246ZZ4 Ultrasonography of Right and Left Heart, Transesophageal (ICD-10-PCS; principal; 2017-03-29 09:00)
PROC: 02UG0JZ Supplement Mitral Valve with Synthetic Substitute, Open Approach (ICD-10-PCS; 2017-03-29 09:00)
PROC: 5A1221Z Performance of Cardiac Output, Continuous (ICD-10-PCS; 2017-03-29 09:00)
DX: I34.0 Nonrheumatic mitral (valve) insufficiency (principal); J98.11 Atelectasis; I44.2 Atrioventricular block, complete; J98.2 Interstitial emphysema; Q25.43 Congenital aneurysm of aorta; I10 Essential (primary) hypertension; E78.00 Pure hypercholesterolemia, unspecified; G47.33 Obstructive sleep apnea (adult) (pediatric); F17.220 Nicotine dependence, chewing tobacco, uncomplicated; E11.9 Type 2 diabetes mellitus without complications; E66.9 Obesity, unspecified; Z98.890 Other specified postprocedural states; I44.30 Unspecified atrioventricular block; Z86.14 Personal history of Methicillin resistant Staphylococcus aureus infection; Z68.33 Body mass index [BMI] 33.0-33.9, adult
CPT/HCPCS: 36415; 36600; 71010; 71020; 71250; 76000; 80048; 80053; 81001; 82330; 82803; 82805; 82947; 82962; 83036; 83540; 83550; 83735; 84132; 84295; 85014; 85018; 85025; 85049; 85347; 85610; 85730; 86850; 86900; 86901; 86920; 87641; 93005; 93312; 93320; 93325; 94002; 94010; 94640; 94660; 94762; 94770; A9270-GY; C1769; C1894; J0690; J1170; J1644; J1885; J1940; J2150; J2250; J2370; J2720; J2795; J2930; J3010; J3475; P9045; P9047